=== PATIENT | male | born 1975 | race Caucasian/White ===

== ENCOUNTER 2023-10-25 16:02 | Emergency (ER) | payer OTHER, SELFPAY ==
[2023-10-25 16:09] VITALS: BP 117/84; BMI 24.4
--- NOTE | 2023-10-25 17:25 | ED.GENMED ---
History of Present Illness
<Summer Russell PA-C - Last Filed: 10/26/23 07:21>
General
Chief Complaint: Swelling
Source: patient
Exam Limitations: none
Time Seen by Provider: 10/25/23 16:37
Nursing documentation reviewed up to this point in time: agreed with
Travel History
Have you had any contact with someone who has COVID-19?: No
Do you have any symptoms of coronavirus? Fever > 100 degrees, chills, cough, shortness of breath, sore throat, loss of taste or smell, muscle aches, or headache?: No
History of Present Illness
History of Present Illness:
48 Y/O M with no chronic medical problems
says that he got out of his truck 6 days ago for work and felt pain and a lump to right prox medial calf; he doesn't recall injury
he went to his PCP the next day and was told he probably had superficial thrombophlebitis and was started on antiinflammatories (diclofenac?)
he says 2 day ago he drove to [place] and back otday and thought the calf was a ltitl emore swollen and bruised
he says 'it was purple before' but it resovled
no foot drop, paresthesias, weakness, cp, sob, fever.
Past History
<Summer Russell PA-C - Last Filed: 10/26/23 07:21>
Past History
ED Past Medical History: None
ED Past Surgical History: Cardiac (Angioplasty) and Orthopedic (Left knee Surgery X 2)
Patient has exhibited threatening behavior?: No
PSI?: No
Social History
Tobacco: Smoker
Alcohol: Occasional
Drug: None
Personal:
Living: alone
Review of Systems
<Summer Russell PA-C - Last Filed: 10/26/23 07:21>
Review of Systems
Allergies reviewed?: Yes
All Other Systems: Not applicable
Phy Exam
<Summer Russell PA-C - Last Filed: 10/26/23 07:21>
Physical Exam
Physical Exam:
GENERAL: Alert , in no apparent distress
EYE: pupils equal and reactive
CARDIAC: Regular rate and rhythm . 2+ dp pulse left leg
LUNGS: Clear breath sounds bilaterally, no acute respiratory distress, no wheezes/rales/rhonchi
NEUROLOGICAL: Alert and oriented, no focal neuro deficitsm sensation and strength intact
SKIN: Warm and dry, skin intact.
small area approx 4 cm x 2 cm redness with tendnress; palpable cord in that area; no distal color change, no swelling to foot,
MUSCULOSKELETAL: No edema, well perfused. neg john's sign
calf soft, normal compartment
PSYCH: Normal and appropriate interaction.
<Terell Barksdale PA-C - Last Filed: 10/25/23 20:45>
Heart Failure Risk
Heart Failure Risk Score: Not Applicable
Course
<Summer Russell PA-C - Last Filed: 10/26/23 07:21>
Orders/Labs/Results
Orders:
Orders
10/25/23 17:25
Venous Doppler Lwr Ext Left [US Periph Venous LOWER Ext LT] Urgent
Comment:
Reason For Exam: LEFT PROX CALF REDNESS; EVAL THROMBOPHLEBITIS;DVT
Vital Signs
Initial and Last Documented VS:
Initial Vital Signs
Temp Pulse Resp BP Pulse Ox
98.2 F 93 16 117/84 100
10/25/23 16:09 10/25/23 16:09 10/25/23 16:09 10/25/23 16:09 10/25/23 16:09
Last Documented Vital Signs
Temp Pulse Resp BP Pulse Ox
98.2 F 85 18 116/74 99
10/25/23 16:09 10/25/23 18:46 10/25/23 18:46 10/25/23 18:46 10/25/23 18:46
<Terell Barksdale PA-C - Last Filed: 10/25/23 20:45>
Orders/Labs/Results
Orders:
Orders
10/25/23 17:25
Venous Doppler Lwr Ext Left [US Periph Venous LOWER Ext LT] Urgent
Comment:
Reason For Exam: LEFT PROX CALF REDNESS; EVAL THROMBOPHLEBITIS;DVT
Vital Signs
Initial and Last Documented VS:
Initial Vital Signs
Temp Pulse Resp BP Pulse Ox
98.2 F 93 16 117/84 100
10/25/23 16:09 10/25/23 16:09 10/25/23 16:09 10/25/23 16:09 10/25/23 16:09
Last Documented Vital Signs
Temp Pulse Resp BP Pulse Ox
98.2 F 85 18 116/74 99
10/25/23 16:09 10/25/23 18:46 10/25/23 18:46 10/25/23 18:46 10/25/23 18:46
<Summer Russell PA-C - Last Filed: 10/26/23 07:21>
MDM/Problems Addressed
Differential Diagnosis Includes:
superficial thrombophlebitis, dvt
<Terell Barksdale PA-C - Last Filed: 10/25/23 20:45>
*Critical Care Note
Total Time (30-74mins, 75-104mins- exclusive of procedures): Not Applicable
<MIKAYLA Cullen Last Filed: 10/25/23 20:45>
Update Note
Update Note:
Assumed care of patient from Abril Russell PA-C. Ultrasound shows superficial phlebitis with no evidence for DVT. Recommend full dose aspirin for 14 days, warm compresses, primary care follow-up
ED Attending Note
<Summer Russell PA-C - Last Filed: 10/26/23 07:21>
-
Portions of this chart may have been created with voice recognition software.� Occasional wrong word or��sound alike� substitutions may have occurred due to the inherent limitations of voice recognition software.
Discharge Plan
Departure
Patient Disposition: Home (Routine Discharge)
Date of Disposition: 10/25/23
Time of Disposition: 19:12
Patient with high blood pressure during this ER visit?: No
Condition: Fair
Covid-19: Not Applicable
Discharge Problem:
Superficial thrombophlebitis
Instructions: Phlebitis (DC)
Activity Restrictions/Additional Instructions:
YOUR ULTRASOUND SHOWS NO SIGNS OF DEEP CLOT
YOU SHOULD SWITCH TO ASPIRIN 325 MG ONCE A DAY FOR 1-2 WEEKS TO TREAT THIS
CONTINUE WITH WARM COMPRESSES
FOLLOW UPWITH YOUR DOCTOR NEXT WEEK
RETURN FOR ANY CONCERNS, WEAKNESS, NUMBNESS, SEVERE PAIN/SWLELING, COLOR CHANGE OR ANY CONCERNS.
Interventions
Interventions:
*Risk Screen - Suicide Last Done: 10/25/23 16:09
*General Assessment Last Done: 10/25/23 16:51
*Neglect/Abuse Screening Last Done: 10/25/23 16:09
ED- Fall Risk Assessment Last Done: 10/25/23 16:51
*ED COVID-19 Vaccine History Last Done: 10/25/23 16:09
*Nursing Disposition Last Done: 10/25/23 19:21
ED- Cardiac Assessment Last Done: 10/25/23 16:51
ED- Pulmonary Assessment Last Done: 10/25/23 16:51
ED-Skin Assessment Last Done: 10/25/23 16:51
Discharge Date and Time
Discharge Date/Time: 10/25/23 19:37
[2023-10-25 17:30] VITALS: BP 113/71
[2023-10-25 18:46] VITALS: BP 116/74
== END 2023-10-25 19:37 | disposition home or self-care (01) ==
LOC: EMR 16:02
PROVIDERS: EMERGENCY PHYSICIAN Emergency Medicine; FAMILY PHYSICIAN Family Medicine Sports Medicine
DX: I80.02 Phlebitis and thrombophlebitis of superficial vessels of left lower extremity (principal); F17.200 Nicotine dependence, unspecified, uncomplicated
CPT/HCPCS: 99284; 93971

== ENCOUNTER 2024-08-03 20:43 | Emergency (ER) | payer OTHER, SELFPAY ==
[2024-08-03 20:44] VITALS: BP 108/81
[2024-08-03 21:01] LABS: % Basophils 0.6 % (0-2); % Eosinophils 1.4 % (0-6); % Immature Granulocytes 0.3 % (0-0.5); % Monocytes 7.8 % (1.7-9.3); % Neutrophils 69.9 % (42.2-75.2); Absolute Basophils 0.1 10^3/uL (0-0.2); Absolute Eosinophils 0.2 10^3/uL (0-0.7); Absolute Lymphocytes 2.8 10^3/uL (1.2-3.4); Absolute Monocytes 1.1 10^3/uL (0.1-0.6); Absolute Neutrophils 9.8 10^3/uL (1.4-6.5); Hemoglobin 13.2 g/dL (13.0-18.0); Mean Corp Hgb Conc. 34.7 g/dL (33.0-37.0); Mean Corpuscular Hgb 30.9 pg (27.0-31.0); Mean Platelet Volume 8.5 fL (7.4-10.4); Nucleated Red Blood Cells % 0 % (-); Platelet Count 282 10^3/uL (130-400); Red Blood Cell Count 4.27 10^6/uL (4.70-6.10); Red Cell Dist. Width 12.8 % (11.5-14.5); White Blood Cell Count 14.1 10^3/uL (4.8-10.8)
[2024-08-03 21:16] LABS: COVID-19 Antigen Negative (Negative)
[2024-08-03 21:23] LABS: ALT (SGPT) 17 U/L (0-50); AST (SGOT) 17 U/L (17-59); Alkaline Phosphatase 73 U/L (38-126); Blood Urea Nitrogen 13 mg/dl (9-20); Calcium 8.9 mg/dl (8.4-10.2); Carbon Dioxide 24 mmol/L (22-30); Chloride 100 mmol/L (98-107); Glucose 149 mg/dl (70-99); Potassium 3.8 mmol/L (3.5-5.1); Sodium 135 mmol/L (135-145); Total Bilirubin 0.3 mg/dl (0.2-1.3); Total Protein 6.6 g/dl (6.3-8.2); eGFR > 60.00
== END 2024-08-04 00:45 ==
LOC: EMR 20:43
PROVIDERS: EMERGENCY PHYSICIAN Emergency Medicine
DX: R51.9 Headache, unspecified (principal); Z53.21 Procedure and treatment not carried out due to patient leaving prior to being seen by health care provider
CPT/HCPCS: 70450; 80053; 85025; 87502; 87811

== ENCOUNTER 2024-12-24 09:59 | Emergency (ER) | payer OTHER, SELFPAY ==
[2024-12-24 10:00] VITALS: BP 116/85
[2024-12-24 11:29] VITALS: BMI 23.5
[2024-12-24] MEDS: TORADOL 15 MG IV (11:34)
[2024-12-24 11:42] VITALS: BP 123/88
[2024-12-24 11:45] LABS: Hematocrit 40.2 % (39.0-52.0); Hemoglobin 13.8 g/dL (13.0-18.0); Mean Corp Hgb Conc. 34.3 g/dL (33.0-37.0); Mean Corpuscular Hgb 31.2 pg (27.0-31.0); Mean Corpuscular Volume 90.7 fL (80.0-94.0); Mean Platelet Volume 8.8 fL (7.4-10.4); Platelet Count 244 10^3/uL (130-400); Red Blood Cell Count 4.43 10^6/uL (4.70-6.10); Red Cell Dist. Width 13.1 % (11.5-14.5); White Blood Cell Count 8.8 10^3/uL (4.8-10.8)
--- NOTE | 2024-12-24 11:47 | ED.GENMED ---
History of Present Illness
General
Chief Complaint: Back Pain
Source: patient
Exam Limitations: none
Time Seen by Provider: 12/24/24 10:43
Nursing documentation reviewed up to this point in time: agreed with
History of Present Illness
History of Present Illness:
Patient presents ED secondary to worsening right lower back pain over the past 2 days. Patient denies direct trauma. Denies loss of sensation or weakness. Denies fever or chills. Denies urinary or bowel incontinence. Patient works for
[employer] and does operate heavy [employer] in sitting position. Denies recent change in activities. Denies previous history of similar symptoms. Denies difficulty with urination. There is family history of kidney stones.
Past History
Past History
ED Past Medical History: None
ED Past Surgical History: Cardiac (Angioplasty) and Orthopedic (Left knee Surgery X 2)
Patient has exhibited threatening behavior?: No
PSI?: No
Social History
Tobacco: Smoker
Alcohol: Occasional
Drug: None
Personal:
Living: alone
Review of Systems
Review of Systems
Allergies reviewed?: Yes
All Other Systems: ROS reviewed and negative except as documented in HPI and ROS
Constitutional: Reports no symptoms
ABD/GI: Reports no symptoms; Denies nausea
: Reports no symptoms; Denies incontinence
Musculoskeletal: Reports back pain; Denies neck pain
Skin: Reports no symptoms
Neurological: Reports no symptoms; Denies weakness or numbness
Phy Exam
Physical Exam
Physical Exam:
Physical Exam
General: mild painful distress, not acutely ill. afebrile
Head: nc/at. eomi
Neck: supple. no meningeal signs.
Abdomen: normal bowel sounds. not tender.
Back: no midline tenderness. negative straight leg raise test. normal hip range of motion without pain
Neuro: alert and oriented x 3. no focal neurological deficits
Skin: no rash
Psychiatric: well kept. interactive and cooperative
Extremities: no edema. no calf tenderness.
Course
Orders/Labs/Results
Orders:
Orders
12/24/24 11:20
Ketorolac [Toradol] 15 mg IV NOW STA
12/24/24 11:29
Basic Metabolic Panel Urgent
Complete Blood Count/No Diff Urgent
12/24/24 12:17
Urinalysis Reflex To Culture Urgent
Date Specimen was Collected: 12/24/24
Time Specimen was Collected: 12:11
12/24/24 12:42
CR Lumbar Spine Comp Min 4 Vw* Urgent
Comment:
Reason For Exam: right lower back pain
12/24/24 14:36
Prednisone [Deltasone] 50 mg PO NOW STA
Abnormal Lab Results
12/24/24
11:29
RBC 4.43 L 10^6/uL
(4.70-6.10)
MCH 31.2 H pg
(27.0-31.0)
12/24/24 11:29
12/24/24 11:29
Vital Signs
Initial and Last Documented VS:
Initial Vital Signs
Temp Pulse Resp BP Pulse Ox
97.5 F 84 18 116/85 100
12/24/24 10:00 12/24/24 10:00 12/24/24 10:00 12/24/24 10:00 12/24/24 10:00
Last Documented Vital Signs
Temp Pulse Resp BP Pulse Ox
98.2 F 75 18 118/62 98
12/24/24 15:16 12/24/24 15:16 12/24/24 15:16 12/24/24 15:16 12/24/24 15:16
MDM/Problems Addressed
MDM/Problems Addressed:
X-ray report reviewed and discussed with the patient
History and exam consistent with likely lower back pain, likely musculoskeletal in etiology with associated muscle spasm. Fortunately, patient is afebrile, helically stable, and without any exam findings concerning for cauda equina syndrome.
Patient reports mild improvement symptoms after treatment. Patient will be treated conservatively with course of steroids and tramadol, to be used as needed, along with PCP follow-up as an outpatient, including potential MRI, if symptoms persist.
Return precautions provided, i.e. fever/worsening pain/weakness/incontinence.
*Critical Care Note
Total Time (30-74mins, 75-104mins- exclusive of procedures): Not Applicable
ED Attending Note
-
Portions of this chart may have been created with voice recognition software.� Occasional wrong word or��sound alike� substitutions may have occurred due to the inherent limitations of voice recognition software.
Discharge Plan
Departure
Patient Disposition: Home (Routine Discharge)
Date of Disposition: 12/24/24
Time of Disposition: 14:35
Patient with high blood pressure during this ER visit?: Yes
Condition: Good
Discharge Problem:
Back pain
Instructions: Low Back Pain (DC)
Prescriptions:
New
prednisone 50 mg tablet
50 mg PO DAILY Qty: 2 0RF
tramadol 50 mg tablet
50 mg PO Q8H PRN (Reason: Pain) Qty: 14 0RF
Referrals:
Ronak Turner DO [Family Provider] -
Activity Restrictions/Additional Instructions:
As discussed, please follow-up with your primary care physician for reevaluation, including potential MRI back, if symptoms persist. Please consider return to ED with worsening symptoms, i.e. fever/worsening pain/urinary or bowel
incontinence/weakness. Your prescriptions have been sent electronically to [facility] pharmacy in [place].
Interventions
Interventions:
*Risk Screen - Suicide Last Done: 12/24/24 10:00
*General Assessment Last Done: 12/24/24 10:03
*Neglect/Abuse Screening Last Done: 12/24/24 10:00
*ED- Fall Risk Assessment Last Done: 12/24/24 11:29
*ED COVID-19 Vaccine History Last Done: 12/24/24 11:29
*Nursing Disposition Last Done: 12/24/24 15:17
Discharge Date and Time
Print Language: LIBYAN
[2024-12-24 11:52] LABS: Blood Urea Nitrogen 11 mg/dl (9-20); Calcium 9.1 mg/dl (8.4-10.2); Carbon Dioxide 30 mmol/L (22-30); Chloride 107 mmol/L (98-107); Estimated Creatinine Clearance > 125 ml/min; Glucose 79 mg/dl (70-99); Potassium 4.3 mmol/L (3.5-5.1); Sodium 141 mmol/L (135-145); eGFR > 60.00
[2024-12-24 12:27] LABS: Urine Albumin Negative (Neg - Trace); Urine Bilirubin Negative (Negative); Urine Character Clear (Clear); Urine Color Yellow; Urine Glucose Negative (Negative); Urine Ketone Negative (Negative); Urine Leukocyte Negative (Negative); Urine Nitrite Negative (Negative); Urine Occult Blood Negative (Negative); Urine Urobilinogen Negative (Neg - 1+)
[2024-12-24 13:54] VITALS: BP 113/62
[2024-12-24] MEDS: DELTASONE 50 MG PO (15:11)
[2024-12-24 15:16] VITALS: BP 118/62
== END 2024-12-24 15:17 | disposition home or self-care (01) ==
LOC: EMR 09:59
PROVIDERS: EMERGENCY PHYSICIAN Emergency Medicine; FAMILY PHYSICIAN Family Medicine Sports Medicine
DX: M54.50 Low back pain, unspecified (principal); F17.200 Nicotine dependence, unspecified, uncomplicated
CPT/HCPCS: 99283; 96374; 72110; 80048; 81003; 85027

== ENCOUNTER 2025-06-05 20:02 | Emergency (ER) | payer OTHER, SELFPAY ==
[2025-06-05 20:04] VITALS: BP 144/90
[2025-06-05 20:28] LABS: Hematocrit 36.9 % (39.0-52.0); Hemoglobin 12.8 g/dL (13.0-18.0); Mean Corp Hgb Conc. 34.7 g/dL (33.0-37.0); Mean Corpuscular Volume 88.5 fL (80.0-94.0); Nucleated Red Blood Cells % 0 % (-); Platelet Count 239 10^3/uL (130-400); Red Cell Dist. Width 13.3 % (11.5-14.5)
[2025-06-05 20:52] LABS: ALT (SGPT) 13 U/L (0-50); AST (SGOT) 16 U/L (17-59); Albumin 4.1 g/dl (3.5-5.0); Alkaline Phosphatase 61 U/L (38-126); Blood Urea Nitrogen 11 mg/dl (9-20); Calcium 9.2 mg/dl (8.4-10.2); Carbon Dioxide 29 mmol/L (22-30); Chloride 103 mmol/L (98-107); Glucose 86 mg/dl (70-99); Potassium 3.8 mmol/L (3.5-5.1); Sodium 138 mmol/L (135-145); Total Protein 6.5 g/dl (6.3-8.2); eGFR > 60.00
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
[2025-06-05 22:14] VITALS: BMI 22.4
== END 2025-06-05 23:16 | disposition home or self-care (01) ==
LOC: EMR 20:02
PROVIDERS: Emergency Medicine; EMERGENCY PHYSICIAN Emergency Medicine; FAMILY PHYSICIAN Family Medicine Sports Medicine
DX: R51.9 Headache, unspecified (principal); R42 Dizziness and giddiness; Y09 Assault by unspecified means; F17.200 Nicotine dependence, unspecified, uncomplicated; H53.2 Diplopia; Z86.72 Personal history of thrombophlebitis
CPT/HCPCS: 99284; 70450; 80053; 85025